=== PATIENT | female | born 1965 | race Caucasian/White ===

== ENCOUNTER → 2019-04-15 | Outpatient (CLI) | payer BC, MEDICARE ==
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
== END ==
LOC: RAD 13:49
PROVIDERS: ATTEND Internal Medicine
DX: S00.83XA Contusion of other part of head, initial encounter (principal); R29.818 Other symptoms and signs involving the nervous system
CPT/HCPCS: 70551

== ENCOUNTER → 2019-05-14 | Outpatient (CLI) | payer MEDICARE ==
--- NOTE | 2019-05-14 16:51 | Diagnostic Imaging Report ---
PROCEDURE: CT abdomen and pelvis without contrast. TECHNIQUE: Multiple contiguous axial images were obtained through the abdomen and pelvis without the use of intravenous contrast. Auto Exposure Controls were utilized during the CT exam to meet ALARA standards for radiation dose reduction. INDICATION: Abdominal pain. COMPARISON: None available. FINDINGS: The visualized lung bases are clear. Diffusely decreased density of the liver without focal hepatic mass. The spleen is unremarkable. The adrenal glands are unremarkable. Cholecystectomy. Mild fatty infiltration of the pancreas. The kidneys and bilateral ureters are unremarkable. No aneurysmal dilatation of the abdominal aorta. The urinary bladder is unremarkable. The uterus is not visualized, likely surgically absent. No abnormal adnexal mass. Prior appendectomy. No bowel obstruction or pneumatosis. No significant adenopathy, free air, or free fluid within the abdomen or pelvis. Mild scattered osseous degenerative changes without acute osseous abnormality. IMPRESSION: No acute abnormality. Fatty infiltration of the liver and pancreas. Cholecystectomy, hysterectomy, and appendectomy. Dictated by: Dictated on workstation # [id number]
== END ==
LOC: RAD 14:24
PROVIDERS: ATTEND Urology
DX: K76.0 Fatty (change of) liver, not elsewhere classified (principal); R10.2 Pelvic and perineal pain; Z90.49 Acquired absence of other specified parts of digestive tract; Z90.710 Acquired absence of both cervix and uterus; Z90.89 Acquired absence of other organs
CPT/HCPCS: 74176

== ENCOUNTER 2020-02-06 12:53 | Emergency (ER) | payer MEDICARE ==
[~2020-02-06] VITALS: Ht 167 cm; Wt 95.0 kg
[2020-02-06] MEDS ORDERED: LACTATED RINGERS 1,000 ML IV STA (13:25)
[2020-02-06] MEDS ORDERED: fentaNYL INJECTION 100 MCG/2 ML AMP IVP STA ×2 (13:25→16:50)
[2020-02-06] MEDS ORDERED: ONDANSETRON 4 MG/2 ML (SDV) Z0FRAN IVP ONE ×2 (13:30→17:00)
[2020-02-06] MEDS ORDERED: HYOSCYAMINE 0.125 MG (LEVSIN) TAB SL ONE (13:30)
[2020-02-06 13:32] LABS: BASOPHILS % (AUTO) 0 % (0-10); EOSINOPHILS # (AUTO) 0.2 10^3/uL (0.0-0.3); EOSINOPHILS % (AUTO) 1 % (0-10); HEMATOCRIT 49 % (35-52); HEMOGLOBIN 16.4 G/DL (11.5-16.0); LYMPHOCYTES # (AUTO) 1.4 X 10^3 (1.0-4.0); LYMPHOCYTES % (AUTO) 12 % (12-44); MEAN CORPUSCULAR HEMOGLOBIN 29 PG (25-34); MEAN CORPUSCULAR HGB CONC 34 G/DL (32-36); MEAN CORPUSCULAR VOLUME 86 FL (80-99); MEAN PLATELET VOLUME 8.7 FL (7.4-10.4); MONOCYTES # (AUTO) 0.9 X 10^3 (0.0-1.0); MONOCYTES % (AUTO) 8 % (0-12); NEUTROPHILS # (AUTO) 8.6 X 10^3 (1.8-7.8); NEUTROPHILS % (AUTO) 78 % (42-75); PLATELET COUNT 362 10^3/uL (130-400); RED CELL DISTRIBUTION WIDTH 13.5 % (10.0-14.5); WHITE BLOOD COUNT 11.1 10^3/uL (4.3-11.0)
[2020-02-06 13:35] LABS: CLARITY,URINE SL CLOUDY; COLOR,URINE YELLOW; GLUCOSE, URINE (UA) TRACE (NEGATIVE); KETONES,URINE 1+ (NEGATIVE); LEUKOCYTE ESTERASE ,URINE NEGATIVE (NEGATIVE); NITRITE,URINE NEGATIVE (NEGATIVE); PROTEIN,URINE 3+ (NEGATIVE)
[2020-02-06 13:43] LABS: ALBUMIN 4.5 GM/DL (3.2-4.5)
[2020-02-06 13:44] LABS: POTASSIUM 3.2 MMOL/L (3.6-5.0)
[2020-02-06 13:45] LABS: CALCIUM 9.5 MG/DL (8.5-10.1)
[2020-02-06 13:46] LABS: TOTAL PROTEIN 7.8 GM/DL (6.4-8.2)
[2020-02-06 13:46] LABS: BACTERIA,URINE MODERATE /HPF; BILIRUBIN,URINE 1+ (NEGATIVE); RBC,URINE 0-2 /HPF
[2020-02-06 13:48] LABS: BILIRUBIN,TOTAL 0.7 MG/DL (0.1-1.0)
[2020-02-06 13:50] LABS: CREATININE SERUM 1.13 MG/DL (0.60-1.30)
[2020-02-06 13:52] LABS: MAGNESIUM 1.7 MG/DL (1.6-2.4)
--- NOTE | 2020-02-06 14:09 | ED Abdominal Pain ---
General Chief Complaint: Abdominal/GI Problems Stated Complaint: N/V/D;ABD PAIN;BLOATING Nursing Triage Note: ate a bunch of raw cookie dough, now has abdominal pain, N/V/D Sepsis Screen: No Definite Risk Source of Information: Patient Exam Limitations: No Limitations History of Present Illness Date Seen by Provider: Feb 06, 2020 Time Seen by Provider: 13:17 Initial Comments Here with report of nausea, vomiting and diarrhea with abdominal bloating and pain since Sunday of this week, 3 days ago after eating cookie dough on Sunday and Sunday. The cookie dough was raw. Denies blood in stool or vomit. States that anytime she eats or drinks anything it just comes out right away. States water goes right through her. Reports that her diarrhea is almost clear. Denies fevers but felt warm a few days ago but not since. Denies dysuria but does have decreased urine. Arrives tachycardic. Timing/Duration: 3-4 Days Severity/Quality: Moderate, Cramping, Full, Other (bloating) Location: Generalized Abdomen Radiation: No Radiation Activities at Onset: None Modifying Factors: Improves With Defecating; Worsens With Eating Associated Symptoms: No Back Pain, No Chest Pain, No Fever/Chills; Nausea/Vomiting; No Shortness of Air; Weakness Allergies and Home Medications Allergies Coded Allergies: Penicillins (Verified Allergy, Unknown, 02/06/20) Patient Home Medication List Home Medication List Reviewed: Yes Review of Systems Review of Systems Constitutional: see HPI; No chills, No fever EENTM: No Nose Congestion, No Throat Pain Respiratory: Denies Cough, Denies Shortness of Air Cardiovascular: Denies Chest Pain, Denies Edema Gastrointestinal: Diarrhea, Nausea, Vomiting Genitourinary: See HPI Musculoskeletal: no symptoms reported Skin: no symptoms reported All Other Systems Reviewed Negative Unless Noted: Yes Past Yqlmulc-Bempyc-Lirgqw Hx Past Med/Social Hx: Reviewed Nursing Past Med/Soc Hx Patient Social History Alcohol Use: Denies Use Recreational Drug Use: No 2nd Hand Smoke Exposure: No Recent Foreign Travel: No Contact w/Someone Who Travel: No Recent Infectious Disease Expo: No Recent Hopitalizations: No Seasonal Allergies Seasonal Allergies: No Past Medical History Surgeries: Yes (Gallbladder) Appendectomy, Section, Hysterectomy, Tonsillectomy Respiratory: No Cardiac: No Neurological: No Genitourinary: Yes Kidney Stones Musculoskeletal: No Endocrine: No HEENT: No Cancer: No Psychosocial: No Blood Disorders: No Family Medical History Reviewed Nursing Family Hx Physical Exam Vital Signs Vital Signs - First Documented 02/06/20 13:01 Temp 36.8 Pulse 131 Resp 18 B/P (MAP) 129/102 (111) Pulse Ox 98 O2 Delivery Room Air Capillary Refill : Less Than 3 Seconds Height/Weight/BMI Height: '" Weight: lbs. oz. kg; 34.00 BMI Method: General Appearance: WD/WN, no apparent distress HEENT: PERRL/EOMI, pharynx normal Neck: full range of motion, supple Respiratory: lungs clear, normal breath sounds Cardiovascular: no murmur, tachycardia Gastrointestinal: non tender, soft Extremities: non-tender, normal inspection Back: normal inspection, no CVA tenderness, no vertebral tenderness Neurologic/Psychiatric: alert, oriented x 3 Skin: normal color, warm/dry Progress/Results/Core Measures Results/Orders Lab Results Laboratory Tests Test 02/06/20 13:14 02/06/20 13:21 Range/Units White Blood Count 11.1 H 4.3-11.0 10^3/uL Red Blood Count 5.71 4.35-5.85 10^6/uL Hemoglobin 16.4 H 11.5-16.0 G/DL Hematocrit 49 35-52 % Mean Corpuscular Volume 86 80-99 FL Mean Corpuscular Hemoglobin 29 25-34 PG Mean Corpuscular Hemoglobin Concent 34 32-36 G/DL Red Cell Distribution Width 13.5 10.0-14.5 % Platelet Count 362 130-400 10^3/uL Mean Platelet Volume 8.7 7.4-10.4 FL Neutrophils (%) (Auto) 78 H 42-75 % Lymphocytes (%) (Auto) 12 12-44 % Monocytes (%) (Auto) 8 0-12 % Eosinophils (%) (Auto) 1 0-10 % Basophils (%) (Auto) 0 0-10 % Neutrophils # (Auto) 8.6 H 1.8-7.8 X 10^3 Lymphocytes # (Auto) 1.4 1.0-4.0 X 10^3 Monocytes # (Auto) 0.9 0.0-1.0 X 10^3 Eosinophils # (Auto) 0.2 0.0-0.3 10^3/uL Basophils # (Auto) 0.0 0.0-0.1 10^3/uL Sodium Level 142 135-145 MMOL/L Potassium Level 3.2 L 3.6-5.0 MMOL/L Chloride Level 101 98-107 MMOL/L Carbon Dioxide Level 24 21-32 MMOL/L Anion Gap 17 H 5-14 MMOL/L Blood Urea Nitrogen 12 7-18 MG/DL Creatinine 1.13 0.60-1.30 MG/DL Estimat Glomerular Filtration Rate 50 BUN/Creatinine Ratio 11 Glucose Level 182 H 70-105 MG/DL Calcium Level 9.5 8.5-10.1 MG/DL Corrected Calcium 9.1 8.5-10.1 MG/DL Magnesium Level 1.7 1.6-2.4 MG/DL Total Bilirubin 0.7 0.1-1.0 MG/DL Aspartate Amino Transf (AST/SGOT) 13 5-34 U/L Alanine Aminotransferase (ALT/SGPT) 21 0-55 U/L Alkaline Phosphatase 70 40-136 U/L C-Reactive Protein High Sensitivity 1.13 H 0.00-0.50 MG/DL Total Protein 7.8 6.4-8.2 GM/DL Albumin 4.5 3.2-4.5 GM/DL Urine Color YELLOW Urine Clarity SL CLOUDY Urine pH 6.0 5-9 Urine Specific [place] >=1.030 1.016-1.022 Urine Protein 3+ H NEGATIVE Urine Glucose (UA) TRACE H NEGATIVE Urine Ketones 1+ H NEGATIVE Urine Nitrite NEGATIVE NEGATIVE Urine Bilirubin 1+ H NEGATIVE Urine Urobilinogen 1.0 < = 1.0 MG/DL Urine Leukocyte Esterase NEGATIVE NEGATIVE Urine RBC (Auto) TRACE-I NEGATIVE Urine RBC 0-2 /HPF Urine WBC 5-10 H /HPF Urine Squamous Epithelial Cells 5-10 /HPF Urine Crystals NONE /LPF Urine Bacteria MODERATE H /HPF Urine Casts PRESENT /LPF Urine Hyaline Casts 10-25 H /LPF Urine Mucus NEGATIVE /LPF Urine Culture Indicated YES My Orders Orders - KENNETH CUNHA MD Cbc With Automated Diff (02/06/20 13:25) Comprehensive Metabolic Panel (02/06/20 13:25) Hs C Reactive Protein (02/06/20 13:25) Magnesium (02/06/20 13:25) Ua Culture If Indicated (02/06/20 13:25) Ondansetron Injection (Zofran Injectio (02/06/20 13:30) Lactated Ringers (Lr 1000 Ml Iv Solution (02/06/20 13:25) Hyoscyamine Sl Tablet (Levsin Sl Tablet) (02/06/20 13:30) Ed Iv/Invasive Line Start (02/06/20 13:25) Fentanyl Injection (Sublimaze Injection (02/06/20 13:25) Urine Culture (02/06/20 13:21) Lactated Ringers (Lr 1000 Ml Iv Solution (02/06/20 14:20) Hydromorphone Injection (Dilaudid Inject (02/06/20 15:15) Ct Abdomen/Pelvis W (02/06/20 15:56) Orphenadrine Inj (Ed Only) (Norflex Inje (02/06/20 15:56) Ondansetron Injection (Zofran Injectio (02/06/20 17:00) Fentanyl Injection (Sublimaze Injection (02/06/20 16:50) Medications Given in ED Current Medications Medications Dose Ordered Sig/Sally Route Start Time Stop Time Status Last Admin Dose Admin Hydromorphone HCl 0.5 mg ONCE ONCE IV 02/06/20 15:15 02/06/20 15:16 DC 02/06/20 15:34 0.5 MG Hyoscyamine Sulfate 0.125 mg ONCE ONCE SL 02/06/20 13:30 02/06/20 13:31 DC 02/06/20 13:34 0.125 MG Iohexol 100 ml ONCE ONCE IV 02/06/20 16:15 02/06/20 16:19 DC 02/06/20 16:33 100 ML Lactated Ringer's 1,000 ml @ 0 mls/hr Q0M ONCE IV 02/06/20 14:20 02/06/20 14:21 DC 02/06/20 14:36 1,000 MLS/HR Ondansetron HCl 4 mg ONCE ONCE IVP 02/06/20 13:30 02/06/20 13:31 DC 02/06/20 13:33 4 MG Sodium Chloride 100 ml ONCE ONCE IV 02/06/20 16:15 02/06/20 16:19 DC 02/06/20 16:33 80 ML Vital Signs/I&O 02/06/20 02/06/20 13:01 14:42 Temp 36.8 Pulse 131 95 Resp 18 18 B/P (MAP) 129/102 (111) 114/85 (95) Pulse Ox 98 97 O2 Delivery Room Air Room Air Blood Pressure Mean: 111 Progress Progress Note : Progress Note Seen and evaluated. IV, labs, UA, LR 1 L bolus, fentanyl 50 g IV, Levsin 0.125 mg by mouth ordered. Repeat dose of pain medicine with a lot of 0.5 mg IV and Norflex 60 mg IV for abdominal pain and leg cramping respectively. CT abdomen pelvis ordered. Monitor patient. 1730: CT complete and shows no acute findings. We will give an additional dose of fentanyl 50 g IV and Zofran 4 mg IV for nausea and mild pain. Labs reviewed and don't show significant findings. UA appears to be contaminated. Patient did receive additional liter of LR. Discharged home with return precautions. Patient verbalize understanding instructions and agreement with plan. Diagnostic Imaging Diagonstic Imaging: CT Plain Films/CT/US/NM/MRI: abdomen, pelvis Comments [facility] [place] NAME: ANGELI JEAN [facility] REC#: [id number] PT STATUS: REG ER : 1965 PHYSICIAN: KENNETH CUNHA MD ADMIT DATE: 02/06/20/ER Draft Date of Exam:02/06/20 CT ABDOMEN/PELVIS W PROCEDURE: CT abdomen and pelvis with contrast. TECHNIQUE: Multiple contiguous axial images were obtained through the abdomen and pelvis after administration of intravenous contrast. Auto Exposure Controls were utilized during the CT exam to meet ALARA standards for radiation dose reduction. INDICATION: Abdominal pain and diarrhea. COMPARISON: 05/14/2019. FINDINGS: Included portions of the lung bases are clear. CT ABDOMEN: Small bowel loops are nondistended. Normal appendix cannot be adequately identified, but there is no pericecal inflammation. Appendix appears to be surgically absent. Kidneys, adrenal glands, spleen, pancreas, and liver have a normal CT appearance. There is no loculated fluid collection, free fluid, nor free air within the abdomen. A few prominent-appearing, yet subcentimeter mesenteric lymph nodes are noted in the left upper abdominal quadrant. These are slightly more prominent when compared to 05/14/2019. No abnormal retroperitoneal adenopathy is identified. Osseous structures show no acute abnormalities. CT PELVIS: Urinary bladder is unopacified. No calculi are seen within the urinary bladder. There is no loculated fluid collection, free fluid, nor free air. No abnormal adenopathy is seen. Osseous structures show no acute abnormalities. IMPRESSION: 1. A few mildly prominent mesenteric lymph nodes in the left upper abdominal quadrant. These are of uncertain significance, but may be reactive. Mesenteric adenitis may have a similar appearance. 2. Otherwise, no acute abnormalities are seen within the abdomen or pelvis. Dictated on workstation # [id number] Dict: 02/06/20 1642 Trans: 02/06/20 1653 [id number] [id number] Interpreted by: LAI MORAN MD Electronically signed by: Departure Impression Primary Impression: Diffuse abdominal pain Additional Impression: Diarrhea Qualified Codes: R19.7 - Diarrhea, unspecified Disposition: 01 HOME, SELF-CARE Condition: Stable Departure-Patient Inst. Decision time for Depature: 17:32 Referrals: FABIANA ENAMORADO MD (PCP/Family) Primary Care Physician Patient Instructions: Diarrhea in Adolescents and Adults, Severe Abdominal Pain, Adult (DC) Add. Discharge Instructions: All discharge instructions reviewed with patient and/or family. Voiced understanding. Clear liquid diet for the next 24 hours and then advance as tolerated. You may initiate [id number] Imodium per package directions. You may initiate [id number]-[id number] probiotics per package directions. Return for worse pain, fever, vomiting, weakness, breathing problems or other concerns as needed. KENNETH CUNHA MD Feb 06, 2020 14:09
[2020-02-06] MEDS ORDERED: LACTATED RINGERS 1,000 ML IV ONE (14:20)
--- NOTE | 2020-02-06 14:41 | NUR ---
pt sitting quietly in ED bed with no c/o, pt denies any needs at this time, pt shows no s/s of distress, pt states abdominla pain has improved, vs assessed and stable at this time, will continue to monitor
[2020-02-06 14:42] VITALS: BP 114/85
[2020-02-06] MEDS ORDERED: HYDROmorphone 2 MG/ML VIAL (DILAUDID) IV ONE (15:15)
[2020-02-06] MEDS ORDERED: ORPHENADRINE 60 MG/2 ML (NORFLEX) AMP (ED ONLY) IV STA (15:56)
[2020-02-06] MEDS ORDERED: IOHEXOL 350 MG/ML 100 ML (OMNIPAQUE 350) VIAL IV ONE (16:15)
[2020-02-06] MEDS ORDERED: HOLD METFORMIN - RECEIVED CONTRAST 20 ML VIAL IV SCH (16:15)
[2020-02-06] MEDS ORDERED: NS 100 ML (IVPB) BAG IV ONE (16:15)
--- NOTE | 2020-02-06 16:32 | NUR ---
pt in CT to obtain images at this time
--- NOTE | 2020-02-06 16:54 | Diagnostic Imaging Report ---
PROCEDURE: CT abdomen and pelvis with contrast. TECHNIQUE: Multiple contiguous axial images were obtained through the abdomen and pelvis after administration of intravenous contrast. Auto Exposure Controls were utilized during the CT exam to meet ALARA standards for radiation dose reduction. INDICATION: Abdominal pain and diarrhea. COMPARISON: 05/14/2019. FINDINGS: Included portions of the lung bases are clear. CT ABDOMEN: Small bowel loops are nondistended. Normal appendix cannot be adequately identified, but there is no pericecal inflammation. Appendix appears to be surgically absent. Kidneys, adrenal glands, spleen, pancreas, and liver have a normal CT appearance. There is no loculated fluid collection, free fluid, nor free air within the abdomen. A few prominent-appearing, yet subcentimeter mesenteric lymph nodes are noted in the left upper abdominal quadrant. These are slightly more prominent when compared to 05/14/2019. No abnormal retroperitoneal adenopathy is identified. Osseous structures show no acute abnormalities. CT PELVIS: Urinary bladder is unopacified. No calculi are seen within the urinary bladder. There is no loculated fluid collection, free fluid, nor free air. No abnormal adenopathy is seen. Osseous structures show no acute abnormalities. IMPRESSION: 1. A few mildly prominent mesenteric lymph nodes in the left upper abdominal quadrant. These are of uncertain significance, but may be reactive. Mesenteric adenitis may have a similar appearance. 2. Otherwise, no acute abnormalities are seen within the abdomen or pelvis. Dictated by: Dictated on workstation # [id number]
--- OUTSIDE RECORDS SUMMARY | 2020-02-06 17:48 | XMS REPORT | Continuity of Care Document ---
Author Organization Unknown Address Unknown Phone Unavailable Allergies Active Description Code Type Severity Reaction Onset Reported/Identified Relationship to Patient Clinical Status Yes Penicillins [id number] Drug Aller gy Unknown N/A 02/06/2020 Medications There is no data. Problems Date Dx Coded Attending Type Code Diagnosis Diagnosed By 05/19/2019 SANAZ SEBASTIAN MD, Ot K76.0 FATTY (CHANGE OF) LIVER, NOT ELSEWHERE C 05/19/2019 SANAZ SEBASTIAN MD, Ot R10.2 PELVIC AND PERINEAL PAIN 05/19/2019 SANAZ SEBASTIAN MD Ot Z90.4 9 ACQUIRED ABSENCE OF OTHER SPECIFIED PART 05/19/2019 SANAZ SEBASTIAN MD Ot Z90.7 10 ACQUIRED ABSENCE OF BOTH CERVIX AND UTER 05/19/2019 SANAZ SEBASTIAN MD Ot Z90.8 9 ACQUIRED ABSENCE OF OTHER ORGANS 06/02/2019 SANAZ SEBASTIAN MD, Ot K76.0 FATTY (CHANGE OF) LIVER, NOT ELSEWHERE C 06/02/2019 SANAZ SEBASTIAN MD, Ot R10.2 PELVIC AND PERINEAL PAIN 06/02/2019 SANAZ SEBASTIAN MD Ot Z90.4 9 ACQUIRED ABSENCE OF OTHER SPECIFIED PART 06/02/2019 SANAZ SEBASTIAN MD Ot Z90.7 10 ACQUIRED ABSENCE OF BOTH CERVIX AND UTER 06/02/2019 SANAZ SEBASTIAN MD Ot Z90.8 9 ACQUIRED ABSENCE OF OTHER ORGANS 02/06/2020 FABIANA ENAMORADO MD Ot R29.818 OTHER SYMPTOMS AND SIGNS INVOLVING THE N 02/06/2020 FABIANA ENAMORADO MD Ot S00.83XA CONTUSION OF OTHER PART OF HEAD, INITIAL 02/06/2020 SANAZ SEBASTIAN MD, Ot K76.0 FATTY (CHANGE OF) LIVER, NOT ELSEWHERE C 02/06/2020 SANAZ SEBASTIAN MD Ot R10.2 PELVIC AND PERINEAL PAIN 02/06/2020 SANAZ SEBASTIAN MD Ot Z90.4 9 ACQUIRED ABSENCE OF OTHER SPECIFIED PART 02/06/2020 SANAZ SEBASTIAN MD Ot Z90.7 10 ACQUIRED ABSENCE OF BOTH CERVIX AND UTER 02/06/2020 SANAZ SEBASTIAN MD Ot Z90.8 9 ACQUIRED ABSENCE OF OTHER ORGANS Procedures There is no data. Results Test Result Range PDM - 09 PANEL (PROFILE 1) - 03/13/19 17 :09 Prescribed Drug 1 Clonazepam NRG Creatinine 183.9 mg/dL > or = 20.0 pH 5.74 4.5 - 9.0 Oxidant NEGATIVE mcg/mL <200 Amphetamines NEGATIVE ng/mL <500 medMATCH Amphetamines CONSISTENT NRG Benzodiazepines POSITIVE ng/mL <100 Marijuana Metabolite NEGATIVE ng/mL <20 medMATCH Marijuana Metab CONSISTENT NRG Cocaine Metabolite NEGATIVE ng/mL <150 medMATCH Cocaine Metab CONSISTENT NRG Opiates POSITIVE ng/mL <100 Oxycodone NEGATIVE ng/mL <100 medMATCH Oxycodone CONSISTENT NRG COMMENT NRG Alphahydroxyalprazolam NEGATIVE ng/mL <25 medMATCH aOH alprazolam CONSISTENT NRG Alphahydroxymidazolam NEGATIVE ng/mL < 50 medMATCH aOH midazolam CONSISTENT NRG Alphahydroxytriazolam NEGATIVE ng/mL < 50 medMATCH aOH triazolam CONSISTENT NRG Aminoclonazepam 2312 ng/mL <25 medMATCH Aminoclonazepam CONSISTENT NRG Hydroxyethylflurazepam NEGATIVE ng/mL <50 medMATCH OH,Et flurazepam CONSISTENT NR G Lorazepam NEGATIVE ng/mL <50 medMATCH Lorazepam CONSISTENT NRG Nordiazepam NEGATIVE ng/mL <50 medMATCH Nordiazepam CONSISTENT NRG Oxazepam NEGATIVE ng/mL <50 medMATCH Oxazepam CONSISTENT NRG Temazepam NEGATIVE ng/mL <50 medMATCH Temazepam CONSISTENT NRG Codeine NEGATIVE ng/mL <50 medMATCH Codeine CONSISTENT NRG Hydrocodone 1845 ng/mL <50 medMATCH Hydrocodone CONSISTENT NRG Hydromorphone 135 ng/mL <50 medMATCH Hydromorphone CONSISTENT NRG Morphine NEGATIVE ng/mL <50 medMATCH Morphine CONSISTENT NRG Norhydrocodone 1046 ng/mL <50 medMATCH Norhydrocodone CONSISTENT NRG Prescribed Drug 2 Hydrocodone NRG Barbiturates NEGATIVE ng/mL <300 medMATCH Barbiturates CONSISTENT NRG Methadone Metabolite NEGATIVE ng/mL <100 medMATCH Methadone Metab CONSISTENT NRG Phencyclidine NEGATIVE ng/mL <25 medMATCH Phencyclidine CONSISTENT NRG ANTINUCLEAR ANTIBODIES TITER AND PATTE RN - 07/01/19 11:33 FRANCINE PATTERN Nuclear, Dense Fine Speckled NRG FRANCINE TITER 1:40 titer NRG CRP - 07/10/19 12:22 C-REACTIVE PROTEIN 6.5 mg/L <8.0 Complete blood count (CBC) with automate d white blood cell (WBC) differential - 02/06/20 13:14 Blood leukocytes automated count (number/volume) 11.1 10*3/uL 4.3-11.0 Blood erythrocytes automated count (number/volume) 5.71 10*6/uL 4.35-5.85 Venous blood hemoglobin measurement (mass/volume) 16.4 g/dL 11.5-16.0 Blood hematocrit (volume fraction) 49 % 35-52 Automated erythrocyte mean corpuscular volume 86 [ foz_us] 80-99 Automated erythrocyte mean corpuscular h emoglobin (mass per erythrocyte) 29 pg 25-34 Automated erythrocyte mean corpuscular h emoglobin concentration measurement (mass/volume) 34 g/dL 32-36 Automated erythrocyte distribution width ratio 13. 5 % 10.0- 14.5 Automated blood platelet count (count/volume) 362 10*3/uL 130-400 Automated blood platelet mean volume measurement 8.7 [foz_us] 7.4-10.4 Automated blood neutrophils/100 leukocytes 78 % 42-75 Automated blood lymphocytes/100 leukocytes 12 % 12-44 Blood monocytes/100 leukocytes 8 % 0-12 Automated blood eosinophils/100 leukocytes 1 % 0-10 Automated blood basophils/100 leukocytes 0 % 0-10 Blood neutrophils automated count (number/volume) 8.6 10*3 1.8-7.8 Blood lymphocytes automated count (number/volume) 1.4 10*3 1.0-4.0 Blood monocytes automated count (number/volume) 0. 9 10*3 0.0-1.0 Automated eosinophil count 0.2 10*3/uL 0 .0-0.3 Automated blood basophil count (count/volume) 0.0 10*3/uL 0.0-0.1 Comprehensive metabolic panel - 02/06/20 13:14 Serum or plasma sodium measurement (moles/volume) 142 mmol/L 135-145 Serum or plasma potassium measurement (moles/volume) 3.2 mmol/L 3.6-5.0 Serum or plasma chloride measurement (moles/volume) 101 mmol/L 98-107 Carbon dioxide 24 mmol/L 21-32 Serum or plasma anion gap determination (moles/volume) 17 mmol/L 5-14 Serum or plasma urea nitrogen measurement (mass/volume ) 12 mg/dL 7-18 Serum or plasma creatinine measurement (mass/volume) 1.13 mg/dL 0.60-1.30 Serum or plasma urea nitrogen/creatinine mass ratio 11 NRG Serum or plasma creatinine measurement w ith calculation of estimated glomerular filtration rate 50 NRG Serum or plasma glucose measurement (mass/volume) 182 mg/dL 70-105 Serum or plasma calcium measurement (mass/volume) 9.5 mg/dL 8.5-10.1 Serum or plasma total bilirubin measurement (mass/volu me) 0.7 mg/dL 0.1-1.0 Serum or plasma alkaline phosphatase cristina surement (enzymatic activity/volume) 70 U/L 40-136 Serum or plasma aspartate aminotransfera se measurement (enzymatic activity/volume) 13 U/L 5-34 Serum or plasma alanine aminotransferase measurement (enzymatic activity/volume) 21 U/L 0-55 Serum or plasma protein measurement (mass/volume) 7.8 g/dL 6.4-8.2 Serum or plasma albumin measurement (mass/volume) 4.5 g/dL 3.2-4.5 CALCIUM CORRECTED 9.1 mg/dL 8.5-10.1 Magnesium - 02/06/20 13:14 Magnesium 1.7 mg/dL 1.6-2.4 Serum or plasma C reactive protein measu rement (mass/volume) - 02/06/20 13:14 Serum or plasma C reactive protein measurement (mass/v olume) 1.13 mg/dL 0.00-0.50 Complete urinalysis with reflex to cultu re - 02/06/20 13:21 Urine color determination YELLOW NRG Urine clarity determination SL CLOUDY N RG Urine pH measurement by test strip 6.0 5-9 Specific gravity of urine by test strip >= 1.016-1.022 Urine protein assay by test strip, semi-quantitative 3+ NEGATIVE Urine glucose detection by automated test strip TR DELMY NEGATIVE Erythrocytes detection in urine sediment by light micr oscopy TRACE-I NEGATIVE Urine ketones detection by automated test strip 1+ NEGATIVE Urine nitrite detection by test strip NEGATIVE NEGATIVE Urine total bilirubin detection by test strip 1+ NEGATIVE Urine urobilinogen measurement by automated test strip (mass/volume) 1.0 mg/dL < = 1.0 Urine leukocyte esterase detection by dipstick NEG ATIVE NEGATIVE Automated urine sediment erythrocyte cou nt by microscopy (number/high power field) [HPF] NRG Automated urine sediment leukocyte count by microscopy (number/high power field) [HPF] NRG Bacteria detection in urine sediment by light microsco py MODERATE NRG Squamous epithelial cells detection in u rine sediment by light microscopy 5-10 NRG Crystals detection in urine sediment by light microsco py NONE NRG Casts detection in urine sediment by light microscopy PRESENT NRG Mucus detection in urine sediment by light microscopy NEGATIVE NRG Complete urinalysis with reflex to culture YES NRG Hyaline casts detection in urine sediment by light karolina roscopy 10-25 NRG Encounters ACCT No. Visit Date/Time Discharge Status Pt. Type Provider Facility Loc./Unit Complaint [id number] 11/25/2019 13:01:00 11/25/2019 23:59 :00 DIS Outpatient CONI DOMINGUEZ [id number] 07/29/2019 13:54:00 07/29/2019 23:59 :00 DIS Outpatient CONI DOMINGUEZ [id number] 12/22/2019 16:10:00 12/22/2019 23:59: 59 CLS Outpatient FABIANA ENAMORADO MD [facility] [id number] 07/10/2019 12:20:00 Document Registration [id number] 07/01/2019 10:40:00 Document Registration [id number] 03/13/2019 16:20:00 Document Registration [id number] 05/14/2019 14:24:00 23:59:59 CLS Outpatient SANAZ SEBASTIAN MD [facility] RAD ABDOMINAL AND PELVIC PA IN [id number] 04/15/2019 13:49:00 23:59:59 CLS Outpatient FABIANA ENAMORADO MD [facility] RAD ABN ROMBERG TEST [id number] 02/06/2020 12:56:[address] Emergency GUERLINE RINCON, KENNETH Angel [facility] ER N/V/D;ABD PAIN;BLOATING
[2020-02-06] MEDS ORDERED: HYOS0.1283 SL (17:53)
[2020-02-06 18:00] VITALS: BP 116/85
[2020-02-06] MEDS ORDERED: LOPERAMIDE 2 MG (IMODIUM) TABLET PO ONE (18:00)
== END 2020-02-06 18:05 | disposition home or self-care (01) ==
LOC: EDUNIT# 12:53 → ER 12:56
DX: R10.84 Generalized abdominal pain (principal); R19.7 Diarrhea, unspecified; Z88.0 Allergy status to penicillin
CPT/HCPCS: 36415; 74177; 80053; 81000; 83735; 85025; 86141; 87088

== ENCOUNTER 2020-03-25 05:47 | Outpatient (CLI) | payer MEDICARE ==
[~2020-03-25] VITALS: Ht 167.7 cm; Wt 95.0 kg
[~2020-03-25 05:47] MED LIST: HYOS0.1283 SL
[2020-03-25] MEDS ORDERED: MELO15TA39 PO (15:35)
[2020-03-25] MEDS ORDERED: TIZA2TAB7 PO (15:35)
[2020-03-25] MEDS ORDERED: CLON2TAB12 PO (15:35)
[2020-03-25] MEDS ORDERED: NRT10C PO (15:35)
[2020-03-25] MEDS ORDERED: BACL20TA PO (15:35)
[2020-03-25] MEDS ORDERED: DULO60CA59 PO (15:35)
[2020-03-25] MEDS ORDERED: LORA10TA7 PO (15:38)
[2020-03-25] MEDS ORDERED: ASPI-1238 PO (15:38)
== END 2020-03-25 15:39 | disposition home or self-care (01) ==
LOC: PREOP 05:47
PROVIDERS: ATTEND Surgery
DX: Z01.818 Encounter for other preprocedural examination (principal)

== ENCOUNTER 2020-04-08 08:53 | Day surgery (SDC) | payer MEDICARE ==
[2020-04-08] VITALS (11 sets, daily range): BP systolic 95–138; BP diastolic 69–94
[~2020-04-08] VITALS: Ht 167.7 cm; Wt 95.0 kg
[~2020-04-08 08:53] MED LIST changes: +ASPI-1238 PO; +BACL20TA PO; +CLON2TAB12 PO; +DULO60CA59 PO; +LORA10TA7 PO; +MELO15TA39 PO; +NRT10C PO; +TIZA2TAB7 PO
[2020-04-08] MEDS ORDERED: LACTATED RINGERS 1,000 ML IV PRN (09:19)
[2020-04-08] MEDS ORDERED: CLINDAMYCIN 600 MG/50 ML IVPB 50 ML IV ONE (09:30)
--- NOTE | 2020-04-08 09:42 | Progress Note-Pre Operative ---
Pre-Operative Progress Note H&P Reviewed The H&P was reviewed, patient examined and no changes noted. Date Seen by Provider: Apr 08, 2020 Time Seen by Provider: 09:42 Date H&P Reviewed: Apr 08, 2020 Time H&P Reviewed: 09:42 Pre-Operative Diagnosis: cyst right neck LACHO ROLON DO Apr 08, 2020 09:42
[2020-04-08] MEDS ORDERED: CATHETER FLUSH 10 ML SYR IV PRN (09:45)
[2020-04-08] MEDS ORDERED: MIDAZOLAM 2 MG/2 ML (VERSED) VIAL IV ONE (09:45)
[2020-04-08] MEDS ORDERED: BUPIVACAINE 0.25% 30 ML (SENSORCAINE) VIAL ONE (10:00)
[2020-04-08] MEDS ORDERED: proPOfol 200 MG/20 ML (DIPRIVAN) VIAL IV ONE (11:03)
[2020-04-08] MEDS ORDERED: ONDANSETRON 4 MG/2 ML (SDV) Z0FRAN ONE (11:03)
[2020-04-08] MEDS ORDERED: LIDOCAINE PF 2% 5 ML (XYLOCAINE) VIAL ONE (11:03)
[2020-04-08] MEDS ORDERED: MIDAZOLAM 2 MG/2 ML (VERSED) VIAL ONE (11:04)
[2020-04-08] MEDS ORDERED: fentaNYL INJECTION 100 MCG/2 ML AMP ONE (11:04)
[2020-04-08] MEDS ORDERED: SEVOFLURANE (ULTANE) 15 ML INHAL SOLN ONE ×2 (13:07→13:44)
--- NOTE | 2020-04-08 13:59 | Anesthesia-General Post-Op ---
General Patient Condition Mental Status/LOC: Same as Preop Cardiovascular: Satisfactory Nausea/Vomiting: Absent Respiratory: Satisfactory Pain: Controlled Complications: Absent Post Op Complications Complications None Follow Up Care/Instructions Patient Instructions None needed. Anesthesia/Patient Condition Patient Condition Patient is doing well, no complaints, stable vital signs, no apparent adverse anesthesia problems. No complications reported per nursing. LEXI BARTON CRNA Apr 08, 2020 13:58
[2020-04-08] MEDS ORDERED: morphine INJ 10 MG/ML 1ML (SYR OR VIAL) IVP ONE (14:00)
[2020-04-08] MEDS ORDERED: ONDANSETRON 4 MG/2 ML (SDV) Z0FRAN IVP PRN (14:00)
[2020-04-08] MEDS ORDERED: fentaNYL INJECTION 100 MCG/2 ML AMP IVP ONE (14:00)
[2020-04-08] MEDS ORDERED: MEPERIDINE (DEMEROL) INJ 50 MG/ML IVP ONE (14:00)
--- NOTE | 2020-04-08 14:01 | Progress Note-Post Operative ---
Post-Operative Progess Note Surgeon (s)/Deputy County Clerk (s) Surgeon LACHO ROLON DO Deputy County Clerk: Cheryl Ramos, MS4 Pre-Operative Diagnosis cyst right neck Post-Operative Diagnosis Right neck cyst Procedure & Operative Findings Date of Procedure 04/08/20 Procedure Performed/Findings Excision of Right neck cyst Anesthesia Type per PRODUCT SUPPORT REP Estimated Blood Loss Estimated blood loss (mL): minimal Specimens/Packing Specimens Removed Right neck cyst, 1.8 x1.2 x0.4cm LACHO ROLON DO Apr 08, 2020 14:01
--- NOTE | 2020-04-09 06:27 | OPERATIVE REPORT ---
DATE OF SERVICE: 04/08/2020 PREOPERATIVE DIAGNOSIS: Right neck cyst. POSTOPERATIVE DIAGNOSIS: Right neck cyst. PROCEDURE: Excision of right neck cyst 1.5 x 1.2 x 0.4 cm. SURGEON: Lacho Monteiro DO ANESTHESIA: General. ESTIMATED BLOOD LOSS: Minimal. COMPLICATIONS: None. INDICATIONS: The patient is a 54-year-old female with a right neck cyst. She understands risks and benefits of procedure and wished to proceed with procedure. Consent was signed in the chart. DESCRIPTION OF PROCEDURE: The patient was taken to the operating suite. She was prepped and draped in sterile fashion. Timeout was performed. Local anesthetic was infiltrated around the cyst. A 15 blade scalpel was used to make a skin incision at the elliptical removing skin and into the subcutaneous tissue and dissecting around the cystic lesion. Once in the fat layer, cautery was used to continue to dissect around the cyst, removing the skin and subcutaneous tissue. Overall, dimensions of the specimen was 1.5 x 1.2 x 0.4 cm. The wound was then irrigated and hemostasis was achieved. The skin was then closed using 4-0 Monocryl in a running subcuticular fashion. The area was washed and dried and Skin Affix was placed over the incision. The patient tolerated procedure well without any complications. She was taken to recovery room in stable condition. Job ID: [id number] DocumentID: [id number] Dictated Date: 04/08/2020 19:14:58 Ent Nurse Date: 04/09/2020 06:25:54 Dictated By: LACHO MONTEIRO DO
== END 2020-04-08 16:00 | disposition home or self-care (01) ==
LOC: SDC 08:53
PROVIDERS: ATTEND Surgery
DX: L72.0 Epidermal cyst (principal); I48.91 Unspecified atrial fibrillation; G47.33 Obstructive sleep apnea (adult) (pediatric); K21.9 Gastro-esophageal reflux disease without esophagitis; E66.9 Obesity, unspecified; Z68.33 Body mass index [BMI] 33.0-33.9, adult; Z79.82 Long term (current) use of aspirin; Z79.899 Other long term (current) drug therapy; Z88.0 Allergy status to penicillin; Z88.1 Allergy status to other antibiotic agents; Z91.030 Bee allergy status; Z80.9 Family history of malignant neoplasm, unspecified
CPT/HCPCS: 87081; 88304

== ENCOUNTER → 2020-05-05 | Outpatient (CLI) | payer MEDICARE ==
--- NOTE | 2020-05-06 17:34 | Diagnostic Imaging Report ---
EXAM: Digital mammogram bilateral screening. 3D digital tomography bilateral. History: Routine screening There are no current complaints. COMPARISON: This study was compared to the prior exams of 09/21/2016 and 12/14/2015. Technique: Bilateral 3D digital tomographic views were obtained with [employer] and reviewed on a [employer] workstation. In addition, CAD - computer aided detection was utilized. Findings: Breast Tissue Density B : The breast tissue is composed of mixed fatty and fibroglandular tissue. There are no suspicious masses, microcalcifications or areas of architectural distortion. IMPRESSION: 1. There is no evidence of malignancy. 2. The patient should have her annual bilateral screening mammogram on schedule in April 2021. No suspicious findings. BI-RADS Category 1: Negative. Normal interval followup. The patient will receive a letter with the results in the mail. A mammogram does not have 100% sensitivity and therefore a negative imaging study should not delay further work up of a suspicious abnormality. Patient information is entered into the [facility] reminder system using Jogg with a target due date for the next screening mammogram. The patient will receive a reminder. "Our facility is accredited by the [employer] Mammography Program." Dictated on workstation # [id number]
== END ==
LOC: RAD 11:15
PROVIDERS: ATTEND Internal Medicine
DX: Z12.31 Encounter for screening mammogram for malignant neoplasm of breast (principal)
CPT/HCPCS: 77063; 77067

== ENCOUNTER → 2020-09-02 | Outpatient (CLI) | payer MEDICARE ==
[~2020-09-02] MED LIST changes: +CATHETER FLUSH 10 ML SYR IV PRN; +HOLD METFORMIN - RECEIVED CONTRAST 20 ML VIAL IV SCH; +IOHEXOL 350 MG/ML 100 ML (OMNIPAQUE 350) VIAL IV ONE; +NS 100 ML (IVPB) BAG IV ONE; +TIZA-169 PO; -TIZA2TAB7 PO
--- NOTE | 2020-09-02 14:13 | Diagnostic Imaging Report ---
PROCEDURE: CT abdomen and pelvis with and without contrast. TECHNIQUE: Precontrast acquisitions were acquired through the abdomen and pelvis. Multiple contiguous axial images were obtained through the abdomen and pelvis after the administration of intravenous contrast. Auto Exposure Controls were utilized during the CT exam to meet ALARA standards for radiation dose reduction. INDICATION: Microscopic hematuria and bladder pain. COMPARISON: Correlation is made with prior CT of 02/06/2020. FINDINGS: The lung bases are clear. Liver demonstrates generalized low density, consistent with hepatic steatosis. No mass is identified. Gallbladder is surgically absent. There is no biliary ductal dilatation. Pancreas and spleen are unremarkable. No adrenal mass is detected. No definite renal calculi or hydronephrosis are identified. Aorta is nonaneurysmal. No central retroperitoneal or mesenteric lymphadenopathy is seen. Small and large bowel loops are normal in caliber. There is moderate stool in the colon. No free fluid is identified. There is no fluid collection. The bladder is unremarkable. Uterus appears to be surgically absent. No pelvic lymphadenopathy is seen. IMPRESSION: 1. Hepatic steatosis. 2. No evidence of urinary tract calculi or obstruction. 3. No acute feature in the abdomen or pelvis is identified. Dictated by: Dictated on workstation # [id number]
== END ==
LOC: RAD 11:46
PROVIDERS: ATTEND Nurse Practitioner Family
DX: R31.0 Gross hematuria (principal); K76.0 Fatty (change of) liver, not elsewhere classified; R39.89 Other symptoms and signs involving the genitourinary system
CPT/HCPCS: 36415; 74178; 82565

== ENCOUNTER → 2021-03-17 | Outpatient (CLI) | payer MEDICARE ==
[2021-03-17 12:13] LABS: CREATININE SERUM 0.81 MG/DL (0.60-1.30)
--- NOTE | 2021-03-17 13:30 | Diagnostic Imaging Report ---
PROCEDURE: CT neck soft tissue with contrast. TECHNIQUE: Multiple contiguous axial images were obtained through the neck after the administration of contrast. Auto Exposure Controls were utilized during the CT exam to meet ALARA standards for radiation dose reduction. INDICATION: Chronic throat pain. Swollen lymph nodes. History of cyst removed. COMPARISON: None. FINDINGS: No suspicious mass or enhancement is seen within the pharynx or larynx. Normal floor of the mouth, tongue base and epiglottis. Normal retropharyngeal space. Normal thyroid and major salivary glands. No mass or fluid collection is seen in the neck. The major vessels in the neck are grossly patent. Visualized intracranial contents are negative. Orbits, paranasal sinuses and mastoids are normal. Moderate spondylotic changes in the cervical spine are greatest at C5-C6. No acute osseous findings. Lung apices are clear. IMPRESSION: No acute CT findings in the neck. No mass, fluid collection, lymphadenopathy or suspicious enhancement. Dictated by: Dictated on workstation # [id number]
== END ==
LOC: RAD 11:07
PROVIDERS: ATTEND Otolaryngology Otolaryngology/Facial Plastic Surgery
DX: R07.0 Pain in throat (principal); R59.9 Enlarged lymph nodes, unspecified; Z98.890 Other specified postprocedural states
CPT/HCPCS: 36415; 70491; 82565; 84520

== ENCOUNTER 2021-09-01 12:02 | Emergency (ER) | payer MEDICARE ==
[~2021-09-01] VITALS: Ht 167 cm; Wt 96.6 kg
[~2021-09-01 12:02] MED LIST changes: -CATHETER FLUSH 10 ML SYR IV PRN; -HOLD METFORMIN - RECEIVED CONTRAST 20 ML VIAL IV SCH; -IOHEXOL 350 MG/ML 100 ML (OMNIPAQUE 350) VIAL IV ONE; -NS 100 ML (IVPB) BAG IV ONE
[2021-09-01 12:34] LABS: BILIRUBIN,URINE NEGATIVE (NEGATIVE); CLARITY,URINE CLEAR; COLOR,URINE YELLOW; GLUCOSE, URINE (UA) NEGATIVE (NEGATIVE); KETONES,URINE NEGATIVE (NEGATIVE); LEUKOCYTE ESTERASE ,URINE NEGATIVE (NEGATIVE); NITRITE,URINE NEGATIVE (NEGATIVE); PROTEIN,URINE TRACE (NEGATIVE)
[2021-09-01 12:54] LABS: BACTERIA,URINE NEGATIVE /HPF; RBC,URINE RARE /HPF; SQUAMOUS EPITHELIAL CELL,UR 0-2 /HPF; WBC,URINE 0-2 /HPF
[2021-09-01] MEDS ORDERED: ONDANSETRON 4 MG/2 ML (SDV) Z0FRAN IVP ONE (13:30)
[2021-09-01] MEDS ORDERED: ANTACID SUSP 30 ML UDC (MYLANTA) PO ONE (13:30)
[2021-09-01] MEDS ORDERED: LIDOCAINE 2% VISCOUS 15 ML UDC PO ONE (13:30)
[2021-09-01 13:39] LABS: BASOPHILS # (AUTO) 0.1 10^3/uL (0.0-0.1); BASOPHILS % (AUTO) 1 % (0-10); EOSINOPHILS # (AUTO) 0.2 10^3/uL (0.0-0.3); EOSINOPHILS % (AUTO) 3 % (0-10); HEMATOCRIT 48 % (35-52); HEMOGLOBIN 15.2 g/dL (11.5-16.0); LYMPHOCYTES # (AUTO) 2.5 10^3/uL (1.0-4.0); LYMPHOCYTES % (AUTO) 34 % (12-44); MEAN CORPUSCULAR HEMOGLOBIN 28 pg (25-34); MEAN CORPUSCULAR HGB CONC 32 g/dL (32-36); MEAN CORPUSCULAR VOLUME 88 fL (80-99); MEAN PLATELET VOLUME 8.6 fL (9.0-12.2); MONOCYTES # (AUTO) 0.7 10^3/uL (0.0-1.0); MONOCYTES % (AUTO) 9 % (0-12); NEUTROPHILS % (AUTO) 53 % (42-75); PLATELET COUNT 333 10^3/uL (130-400); WHITE BLOOD COUNT 7.5 10^3/uL (4.3-11.0)
[2021-09-01 13:44] LABS: ALBUMIN 4.4 GM/DL (3.2-4.5); POTASSIUM 3.6 MMOL/L (3.6-5.0)
[2021-09-01 13:45] LABS: CALCIUM 9.2 MG/DL (8.5-10.1)
[2021-09-01 13:46] LABS: TOTAL PROTEIN 7.8 GM/DL (6.4-8.2)
[2021-09-01 13:48] LABS: BILIRUBIN,TOTAL 0.5 MG/DL (0.1-1.0)
[2021-09-01 13:50] LABS: CREATININE SERUM 0.79 MG/DL (0.60-1.30)
[2021-09-01] MEDS ORDERED: fentaNYL INJ 100 MCG/2 ML AMP IVP ONE (15:00)
[2021-09-01] MEDS ORDERED: IOHEXOL 350 MG/ML 100 ML (OMNIPAQUE 350) VIAL IV ONE (15:15)
[2021-09-01] MEDS ORDERED: HOLD METFORMIN - RECEIVED CONTRAST 20 ML VIAL IV SCH (15:15)
[2021-09-01] MEDS ORDERED: NS 100 ML (IVPB) BAG IV ONE (15:15)
--- NOTE | 2021-09-01 16:35 | Diagnostic Imaging Report ---
CLINICAL INDICATION: Patient fell against the side of her couch approximately a month ago. Patient complains of continued pain in the abdomen and a single episode of hematuria since event. Patient feels like there is a tear in her stomach. EXAM: Axial CT scan of the chest, abdomen, and pelvis performed with 100 mL of Omnipaque 350 IV contrast. Sagittal and coronal reformatted images are created. Auto Exposure Controls were utilized during the CT exam to meet ALARA standards for radiation dose reduction. COMPARISON: CT scan of the abdomen and pelvis with contrast dated 09/02/2020. FINDINGS: CT CHEST: There is a 13 mm calcified granuloma involving the left upper lobe. There is a 3 mm nonspecific nodule in the superior segment of the left lower lobe. There is minimal atelectasis involving the posteroinferior aspects of both lung bases. Otherwise, lungs are clear. There is no pleural effusion or pneumothorax. Thyroid gland is unremarkable. There is a small amount of fluid in the superior pericardial recess. There is no lymphadenopathy in the mediastinal or hilar regions. There is no axillary lymphadenopathy. The extrathoracic soft tissues are unremarkable. CT ABDOMEN AND PELVIS: There is diffuse low density seen throughout the liver likely related to diffuse fatty infiltration. The liver is otherwise unremarkable. The gallbladder is surgically absent. There is slight fatty infiltration of the pancreas. Otherwise, the pancreas is unremarkable. The spleen and adrenal glands are unremarkable. There are two focal circumscribed areas of low density involving the upper pole of the right kidney, likely representing cysts. Largest measures roughly 5 mm. Otherwise, both kidneys are unremarkable with no hydronephrosis or mass. The bladder is fluid filled and otherwise unremarkable. The uterus is surgically absent. The right and left ovaries are not visualized and may be atretic or surgically absent. There is no intestinal obstruction. There is wall thickening involving the antrum of the stomach. The appendix is surgically absent. There is a small amount of stool throughout the colon. There is no intra-abdominal free air or free fluid. The extra-abdominal soft tissues are unremarkable. BONES: There is a subacute fracture involving the anterior aspect of the right T6 rib with callus formation. There is no other fracture seen on this exam. IMPRESSION: 1: There is a subacute fracture involving the anterior aspect of the right T6 rib. There is no other fracture seen involving the CT of the chest, abdomen, or pelvis. 2: There is no other thoracic injury, solid organ injury, or intra-abdominal free fluid. 3: There is a 13 mm calcified granuloma in the left upper lobe. There is a 3 mm nonspecific nodule involving the left lower lobe. 4: There is diffuse fatty infiltration of the liver. 5: Likely small cysts involving the upper pole of the right kidney. Dictated by: Dictated on workstation # [id number]
[2021-09-01] MEDS ORDERED: PROMETHAZINE INJ 25 MG/ML (PHENERGAN) AMP IVP ONE (17:45)
[2021-09-01] MEDS ORDERED: oxyCODONE/APAP 5/325MG (PERCOCET 5) TABLET PO ONE (17:45)
[2021-09-01] MEDS ORDERED: OXYC1TAB87 PO (17:46)
[2021-09-01] MEDS ORDERED: PROM12.511 PO (17:46)
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
[2021-09-01 18:03] VITALS: BP 126/77
== END 2021-09-01 18:03 | disposition home or self-care (01) ==
LOC: EDUNIT# 12:02 → ER 12:04
DX: S22.31XA Fracture of one rib, right side, initial encounter for closed fracture (principal); R10.13 Epigastric pain; R11.0 Nausea; E66.9 Obesity, unspecified; Z68.34 Body mass index [BMI] 34.0-34.9, adult; W18.30XA Fall on same level, unspecified, initial encounter
CPT/HCPCS: 36415; 71260; 74177; 80053; 81000; 83690; 85025; 86141; 96374; 96375

== ENCOUNTER 2021-12-28 05:42 | Outpatient (CLI) | payer MEDICARE ==
[~2021-12-28] VITALS: Ht 167.6 cm; Wt 89.4 kg
[~2021-12-28 05:42] MED LIST changes: +OXYC1TAB87 PO; +PROM12.511 PO
[2021-12-28] MEDS ORDERED: GABA-490 PO (09:47)
[2021-12-28] MEDS ORDERED: METF-397 PO (09:47)
[2021-12-28] MEDS ORDERED: FAMO20TA5 PO (09:47)
== END 2021-12-28 09:49 | disposition home or self-care (01) ==
LOC: PREOP 05:42
PROVIDERS: ATTEND Surgery
DX: Z01.818 Encounter for other preprocedural examination (principal)

== ENCOUNTER 2022-01-10 10:58 | Day surgery (SDC) | payer MEDICARE ==
[~2022-01-10] VITALS: Ht 167 cm; Wt 89.4 kg
[~2022-01-10 10:58] MED LIST changes: +FAMO20TA5 PO; +GABA-490 PO; +METF-397 PO
[2022-01-10] MEDS ORDERED: LACTATED RINGERS 1,000 ML IV ONE (11:02)
[2022-01-10] MEDS ORDERED: LACTATED RINGERS 1,000 ML IV STA (11:04)
[2022-01-10] MEDS ORDERED: HURRICAINE EXT TUBE (BENZOCAINE) XX PRN (11:15)
[2022-01-10 11:20] VITALS: BP 125/96
--- NOTE | 2022-01-10 11:20 | Progress Note-Pre Operative ---
Pre-Operative Progress Note H&P Reviewed The H&P was reviewed, patient examined and no changes noted. Date Seen by Provider: Jan 10, 2022 Time Seen by Provider: 11:20 Date H&P Reviewed: Jan 10, 2022 Time H&P Reviewed: 11:20 Pre-Operative Diagnosis: gerd, hx polyps LACHO ROLON DO Jan 10, 2022 11:20
[2022-01-10] MEDS ORDERED: PROPOFOL INJECTION 50 ML IV ONE ×2 (11:38→12:21)
[2022-01-10] MEDS ORDERED: MIDAZOLAM 2 MG/2 ML (VERSED) VIAL ONE (11:38)
[2022-01-10 12:55] VITALS: BP 117/69
[2022-01-10 13:00] VITALS: BP 115/66
[2022-01-10 13:05] VITALS: BP 110/70
--- NOTE | 2022-01-10 13:06 | Anesthesia-General Post-Op ---
MAC Patient Condition Mental Status/LOC: Same as Preop Cardiovascular: Satisfactory Nausea/Vomiting: Absent Respiratory: Satisfactory Pain: Controlled Complications: Absent Post Op Complications Complications None Follow Up Care/Instructions Patient Instructions None needed. Anesthesiology Discharge Order Discharge Order Patient is doing well, no complaints, stable vital signs, no apparent adverse anesthesia problems. No complications reported per nursing. DANDRE FUNK CRNA Jan 10, 2022 13:06
--- NOTE | 2022-01-10 13:29 | Progress Note-Post Operative ---
Post-Operative Progess Note Surgeon (s)/Assembling Fabricator (s) Surgeon LACHO ROLON DO Assembling Fabricator: na Pre-Operative Diagnosis gerd, hx polyps Post-Operative Diagnosis small hiatal hernia, normal colon Procedure & Operative Findings Date of Procedure 01/10/22 Procedure Performed/Findings egd c biopsies, colonoscopy Anesthesia Type per water treatment plant supervisor Estimated Blood Loss Estimated blood loss (mL): none Specimens/Packing Specimens Removed antrum, ge LACHO ROLON DO Jan 10, 2022 13:29
--- NOTE | 2022-01-10 13:30 | Discharge Inst-Simple/Standard ---
Discharge Inst-Standard Patient Instructions/Follow Up Plan of Care/Instructions/FU: 2 weeks [place] Activity as Tolerated: Yes Discharge Diet: Regular Diet LACHO ROLON DO Jan 10, 2022 13:30
[2022-01-10 13:45] VITALS: BP 126/91
--- NOTE | 2022-01-10 22:03 | OPERATIVE REPORT ---
DATE OF SERVICE: 01/10/2022 PREOPERATIVE DIAGNOSES: Gastroesophageal reflux disease, history of colon polyps. POSTOPERATIVE DIAGNOSES: Small hiatal hernia, normal colon. PROCEDURE: EGD with biopsies, colonoscopy. SURGEON: Lacho Monteiro DO ANESTHESIA: Per WINDOWS SOFTWARE DEVELOPER. ESTIMATED BLOOD LOSS: None. COMPLICATIONS: None. INDICATIONS: The patient is a 56-year-old female needing colonoscopy due to history of colon polyps and GERD for EGD. She understands risks and benefits of procedure and wishes to proceed. Consent was signed in the chart. DESCRIPTION OF PROCEDURE: The patient was taken to the endoscopy suite, placed in left lateral recumbent position. Timeout was performed. Scope was inserted in mouth, down the esophagus, stomach and into the duodenum without difficulty. There were no polyps, masses or ulcerations within the duodenum. Scope was slowly retracted back into the stomach where it was further insufflated. Slight erythematous changes, no polyps, masses or ulcerations. Biopsy of the antrum was obtained. Scope was retroflexed noting a small hiatal hernia, no other pathology. Scope was returned to its normal position, slowly withdrawn to distal esophagus. Biopsy of the GE junction was obtained. No polyps, masses or ulcerations. Scope was slowly retracted back until completely removed. Digital rectal exam was performed. No palpable polyps, masses or ulcerations. Some hemorrhoids present. Scope was inserted in the rectum and advanced all the way to cecum with minimal difficulty. Prep was adequate with irrigation and suction. Scope was then slowly retracted back. No polyps, masses or ulcerations visualized within the cecum, ascending, transverse, descending and sigmoid colon. Once in the rectum, scope was retroflexed noting no other pathology. Scope was returned to its normal position, slowly withdrawn until completely removed. The patient tolerated the procedure well without any complications. She was taken to the recovery room in stable condition. RECOMMENDATIONS: The patient will follow up in the office in two weeks to discuss pathology results. Recommend repeat colonoscopy in five years. We will continue on famotidine. We will consider changing if still symptomatic. Any issues before that be seen at that time. Job ID: [id number] DocumentID: [id number] Dictated Date: 01/10/2022 13:33:00 Arranging Funeral Director Date: 01/10/2022 22:02:47 Dictated By: LACHO MONTEIRO DO
== END 2022-01-10 13:55 | disposition home or self-care (01) ==
LOC: ENDO 10:58
PROVIDERS: ATTEND Surgery
DX: Z12.11 Encounter for screening for malignant neoplasm of colon (principal); K44.9 Diaphragmatic hernia without obstruction or gangrene; K64.9 Unspecified hemorrhoids; K21.9 Gastro-esophageal reflux disease without esophagitis; E66.9 Obesity, unspecified; E11.9 Type 2 diabetes mellitus without complications; Z86.010 Personal history of colon polyps; Z88.0 Allergy status to penicillin; Z88.1 Allergy status to other antibiotic agents; Z68.32 Body mass index [BMI] 32.0-32.9, adult; Z79.82 Long term (current) use of aspirin; Z79.84 Long term (current) use of oral hypoglycemic drugs
CPT/HCPCS: 43239; G0105; 82947

== ENCOUNTER 2023-01-19 11:36 | Emergency (ER) | payer MEDICARE ==
[~2023-01-19] VITALS: Ht 167 cm; Wt 91.0 kg
[2023-01-19 11:40] VITALS: BP 180/115
[2023-01-19] MEDS ORDERED: CLON2TAB12 PO (11:56)
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
== END 2023-01-19 12:02 | disposition home or self-care (01) ==
LOC: EDUNIT# 11:36 → ER 11:38
DX: M62.838 Other muscle spasm (principal); I10 Essential (primary) hypertension; Z79.899 Other long term (current) drug therapy
CPT/HCPCS: 99281